=== PATIENT | female | born 1955 | race Caucasian/White ===

== ENCOUNTER → 2017-01-30 | Outpatient (CLI) | payer BC | LOC: MC.RAD 15:33 | DX: Z12.31 Encounter for screening mammogram for malignant neoplasm of breast (principal) ==

== ENCOUNTER → 2018-02-17 | Outpatient (CLI) | payer BC | LOC: MC.RAD 07:03 | DX: Z12.31 Encounter for screening mammogram for malignant neoplasm of breast (principal) ==

== ENCOUNTER → 2019-02-19 | Outpatient (CLI) | payer BC | LOC: MC.RAD 06:46 | DX: Z12.31 Encounter for screening mammogram for malignant neoplasm of breast (principal) ==

== ENCOUNTER → 2020-03-14 | Outpatient (CLI) | payer BC | LOC: MC.RAD 07:17 | DX: Z12.31 Encounter for screening mammogram for malignant neoplasm of breast (principal) ==

== ENCOUNTER → 2021-03-15 | Outpatient (CLI) | payer BC ==
[~2021-03-15] MED LIST: MULTIVITAMIN FO1 CAP PO; OSCAL 500 TAB500 MG PO; OSTEO-BI-FLEX 21 TAB PO; VITAMINC1000TA PO
== END ==
LOC: MC.RAD 14:15
DX: Z12.31 Encounter for screening mammogram for malignant neoplasm of breast (principal)

== ENCOUNTER 2021-04-20 06:18 | Day surgery (SDC) | payer BC ==
[~2021-04-20] VITALS: Ht 167.6 cm; Wt 55.6 kg
[2021-04-20 06:37] VITALS: BP 102/72; PULSE 66; TEMP 97.9
[2021-04-20] MEDS ORDERED: MULTIVITAMIN FO1 CAP PO (06:48)
[2021-04-20] MEDS ORDERED: OSCAL 500 TAB500 MG PO (06:48)
[2021-04-20] MEDS ORDERED: OSTEO-BI-FLEX 21 TAB PO (06:48)
[2021-04-20] MEDS ORDERED: VITAMINC1000TA PO (06:52)
[2021-04-20 08:10] VITALS: BP 104/62; PULSE 55; TEMP 97.9
[2021-04-20 08:25] VITALS: BP 99/57; PULSE 49
--- NOTE | 2021-04-20 08:25 | NUR ---
Patient sitting up in chair, alert and oriented. Denies discomfort. Vital signs stable. Agrees to try muffin and sprite. Will continue to monitor. Dr is to speak with patient at [id number].
[2021-04-20 08:40] VITALS: BP 109/63; PULSE 54
--- NOTE | 2021-04-20 08:40 | NUR ---
Patient sitting up in chair, alert and oriented. Tolerating food and drink well. Vital signs stable. Reviewed discharge instructions and education materials, patient and verbalized understanding. IV discontinued with no complications. Instructed patient to dress and open door when ready for transportation.
--- NOTE | 2021-04-20 08:50 | NUR ---
DISCONTINUED iv WITH NO COMPLICATIONS
--- NOTE | 2021-04-20 09:05 | NUR ---
Patient transfered via wheelchair to personal vehicle by staff accompanied by .
--- NOTE | 2021-04-20 09:10 | NUR ---
Patient returned to [facility] via cart. Drowsy, wakes easily. Postop vital signs started, consistent with preop vitals. Will continue to monitor.
== END 2021-04-20 09:05 | disposition home or self-care (01) ==
LOC: SDCO 06:18
DX: Z12.11 Encounter for screening for malignant neoplasm of colon (principal); D12.8 Benign neoplasm of rectum; K62.1 Rectal polyp; K64.1 Second degree hemorrhoids; K64.4 Residual hemorrhoidal skin tags; K57.30 Diverticulosis of large intestine without perforation or abscess without bleeding; Z86.010 Personal history of colon polyps; Z80.0 Family history of malignant neoplasm of digestive organs; Z79.899 Other long term (current) drug therapy
CPT/HCPCS: J2704; J7120

== ENCOUNTER → 2022-03-20 | Outpatient (CLI) | payer BC | LOC: MC.RAD 08:00 | DX: Z12.31 Encounter for screening mammogram for malignant neoplasm of breast (principal) ==

== ENCOUNTER → 2024-05-24 | Outpatient (CLI) | payer MEDICARE, BC | LOC: MC.RAD 13:08 | DX: Z12.31 Encounter for screening mammogram for malignant neoplasm of breast (principal) ==